=== PATIENT | male | born 1965 | race Caucasian/White ===

== ENCOUNTER → 2016-05-01 | Outpatient (CLI) | payer OTHER ==
[~2016-05-01] MED LIST: ATOR40TA49 PO; AUGM875T PO; CIPR500T2 PO; LIPI40TA PO; TRAM50TA PO
[2016-05-01 13:11] LABS: HEMATOCRIT 44.3 % (39.0-51.0); MEAN CORPUSCULAR HGB CONC 33.3 % (32.0-36.0); PLATELET COUNT 301 TH/MM3 (150-450); RED BLOOD COUNT 5.47 MIL/MM3 (4.50-5.90); RED CELL DISTRIBUTION WIDTH 13.4 % (11.6-17.2); REVIEW FLAG FINAL; WHITE BLOOD COUNT 7.9 TH/MM3 (4.0-11.0)
[2016-05-01 13:45] LABS: ANION GAP 8 MEQ/L (5-15); AST (GOT) 19 U/L (15-37); BICARBONATE 27.3 MEQ/L (21.0-32.0); BLOOD UREA NITROGEN 7 MG/DL (7-18); CHLORIDE 107 MEQ/L (98-107); GLOMERULAR FILTRATION RATE 73 ML/MIN (>89); GLUCOSE,FASTING 123 MG/DL (74-99); POTASSIUM 4.2 MEQ/L (3.5-5.1); SODIUM (NA) 142 MEQ/L (136-145)
[2016-05-01 13:50] LABS: ALKALINE PHOSPHATASE 89 U/L (45-117); ALT (GPT) 36 U/L (12-78); HDL CHOLESTEROL 31.3 MG/DL (40.0-60.0); LDL CHOLESTEROL 44 MG/DL (0-99); TOTAL BILIRUBIN ADULT 0.5 MG/DL (0.2-1.0)
== END ==
LOC: PLAB 08:52
PROVIDERS: ATTEND Internal Medicine Critical Care Medicine
DX: C43.59 Malignant melanoma of other part of trunk (principal); E78.5 Hyperlipidemia, unspecified; I10 Essential (primary) hypertension
CPT/HCPCS: 36415; 80053; 80061; 84153; 85027

== ENCOUNTER 2016-05-12 09:34 | Emergency (ER) | payer MEDICAID, OTHER ==
[~2016-05-12] VITALS: Ht 170.2 cm; Wt 89.7 kg
[~2016-05-12 09:34] MED LIST changes: -AUGM875T PO; -CIPR500T2 PO; -LIPI40TA PO; -TRAM50TA PO
[2016-05-12 09:48] VITALS: BP 109/69; PULSE 79; RESP 16; TEMP 97.7; O2SAT 98
[2016-05-12] MEDS ORDERED: LIPI40TA PO (10:03)
[2016-05-12] MEDS ORDERED: CIPR500T2 PO (10:03)
[2016-05-12] MEDS ORDERED: TRAM50TA PO (10:03)
--- NOTE | 2016-05-12 10:42 | PD ---
HPI . Left ear pain Chief Complaint: ENT Complaint Time Seen by Provider: 10:26 Travel History International Travel<30 days: No Contact w/Intl Traveler<30days: No Traveled to known affect area: No History of Present Illness HPI Patient presents complaining with left ear pain for about a month. He states that he has been on Cipro for 2 weeks Infection. He states that it is not getting any better. He states that he is now having pain behind his right ear. He denies associated fever. He denies any drainage. [id number]: Left ear QUALITY: Aching DURATION: One month TIMING: Continuous MODIFYING FACTORS: Unrelieved by Cipro 2 weeks PFSH Past Medical History Cancer: Yes (skin, removed) Cardiovascular Problems: Yes (CHOL) High Cholesterol: Yes Diminished Hearing: No Tetanus Vaccination: Unknown Past Surgical History Other Surgery: Yes (skin ca on back removed) Social History Alcohol Use: Yes (occ) Tobacco Use: No (quit 2005) Substance Use: No (hx marijuana; denies currently) Allergies-Medications (Allergen,Severity, Reaction): Coded Allergies: No Known Allergies (Unverified , 05/12/16) Reported Meds & Prescriptions Reported Meds & Active Scripts Active Reported Ciprofloxacin (Ciprofloxacin HCl) 500 Mg Tab 500 Mg PO BID Tramadol (Tramadol HCl) 50 Mg Tab 50 Mg PO Q8H PRN Lipitor (Atorvastatin Calcium) 40 Mg Tab 40 Mg PO DAILY Review of Systems Except as stated in HPI: all other systems reviewed are Neg General / Constitutional: No: Fever, Chills HENT: Positive: Congestion, Earache, Other, No: Ear Discharge Respiratory: No: Cough Physical Exam Narrative GENERAL: Healthy-appearing man in no acute distress. SKIN: Warm and dry. HEAD: Atraumatic. Normocephalic. EYES: Pupils equal and round. ENT: No nasal bleeding or discharge. Mucous membranes pink and moist. His left TM is thickened and dull with no light reflex. He appears to have purulence behind the TM. He doesn't really seem tender over the right mastoid. Right TM cannot be visualized due to cerumen. NECK: Trachea midline. Neck is supple. There is no cervical lymphadenopathy. No cervical masses palpated. CARDIOVASCULAR: Regular rate and rhythm. RESPIRATORY: No accessory muscle use. MUSCULOSKELETAL: No obvious deformities. No edema. NEUROLOGICAL: Awake and alert. No obvious cranial nerve deficits. Motor grossly within normal limits. Normal speech. PSYCHIATRIC: Appropriate mood and affect; insight and judgment normal. Data Data Last Documented VS Vital Signs Date Time Temp Pulse Resp B/P Pulse Ox O2 Delivery O2 Flow Rate FiO2 05/12/16 09:48 97.7 79 16 109/[address] Facial Bones W/O Iv Cont (05/12/16 10:26) MDM Medical Decision Making Medical Screen Exam Complete: Yes Emergency Medical Condition: Yes Differential Diagnosis Differential diagnosis includes persistent otitis media, mastoiditis, intracerebral abscess Narrative Course Patient presents for evaluation of continued ear pain despite antibiotics. I have ordered a CT to rule out any bony or cerebral involvement. Last Impressions Maxillofacial CT 05/12/16 1026 Signed Impressions: Service Date/Time: Thursday, May 12, 2016 11:11 - CONCLUSION: 1. No fracture or acute soft tissue abnormality. 2. Sinus disease. 3. Severe dental disease. Artie Reed MD I will change his antibiotic to Augmentin Diagnosis Primary Impression: Sinusitis Qualified Code: J01.20 - Acute ethmoidal sinusitis, recurrence not specified Patient Instructions: General Instructions, Sinusitis (ED) Additional Instructions: I recommend the use of a Neti Pot. You may use a nasal spray such as Afrin for up to 3 days as needed for nasal congestion. You may take an cpke-hth-hkwvdne antihistamine such as Zyrtec, Arabella or Claritin as needed for runny secretions. You may take pseudoephedrine as needed for congestion. You will need to sign for this at the pharmacy. You may take plain Mucinex, 1200 mg twice a day as needed for thick secretions. You may take a cough syrup such as Delsym as needed for cough. Motrin as needed for fever and body aches. Throat lozenges/sprays as needed for sore throat. Warm salt water gargles for sore throat. Hot tea with lemon and honey also helps soothe a sore throat. Med/Other Pt SpecificInfo: Prescription(s) given Scripts Amoxicillin-Clavulanate (Augmentin)875-125 mg [id number] Mg PO BID 10 Days Ref 0 not for use in CrCl <30 ml/min. Prov:Vivi Goff MD 05/12/16 Disposition: 01 DISCHARGE HOME Condition: Stable Vivi Goff MD May 12, 2016 10:42
--- NOTE | 2016-05-12 11:40 | RADHPO ---
EXAM DATE/TIME: 05/12/2016 11:11 [facility] COMPARISON: CT FACIAL BONES W CONTRAST, July 30, 2015, 13:23. INDICATIONS : Bilateral facial pain in ear area for one month. No injury. RADIATION DOSE: 29.90 CTDIvol (mGy) MEDICAL HISTORY : Skin cancer. SURGICAL HISTORY : None. ENCOUNTER: Initial ACUITY: 1 month PAIN SCORE: 5/10 LOCATION: Bilateral facial ear TECHNIQUE: Volumetric scanning of the facial bones was performed. Using automated exposure control and adjustme nt of the mA and/or kV according to patient size, radiation dose was kept as low as reasonably achiev able to obtain optimal diagnostic quality images. FINDINGS: ORBITS: The orbital and infraorbital osseous structures are intact. The retroconal structures have a normal configuration. No radiopaque foreign bodies are seen. NASAL BONE: The nasal bone and maxillary spine are intact ZYGOMATIC ARCHES: Symmetric without evidence of fracture. SINUSES: There is mucoperiosteal thickening of the ethmoid and right frontal air cells. The mastoid air cells are clear. NASAL CAVITY: The nasal septum is intact and midline. The lacrimal ducts are intact. SOFT TISSUES: There is a skin mole overlying the inferior pole of the right parotid gland that extends several mill imeters deep into the subcutaneous fat. This is nonspecific by CT but the appearance is similar to be fore. Please correlate with direct visual inspection. INTRACRANIAL: No intracranial air seen. CRIBIFORM PLATE: Grossly intact. Severe chronic dental disease. CONCLUSION: 1. No fracture or acute soft tissue abnormality. 2. Sinus disease. 3. Severe dental disease. Artie Reed MD on May 12, 2016 at 11:34 Board Certified Radiologist. This report was verified electronically.
[2016-05-12] MEDS ORDERED: AUGM875T PO (11:50)
== END 2016-05-12 13:06 | disposition home or self-care (01) ==
LOC: PHED 09:34
DX: J32.9 Chronic sinusitis, unspecified (principal); H92.03 Otalgia, bilateral; E78.00 Pure hypercholesterolemia, unspecified; Z87.891 Personal history of nicotine dependence
CPT/HCPCS: 70486